=== PATIENT | female | born 1990 | race American Indian/Alaskan Native ===

== ENCOUNTER 2017-02-17 07:19 | Emergency (ER) | payer OTHER ==
[2017-02-17 07:34] VITALS: BP 121/78
[2017-02-17] MEDS ORDERED: MOTRIN PO ONE (07:56)
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
--- NOTE | 2017-02-17 09:37 | XRay Report ---
FINAL REPORT PROCEDURE: XR SHOULDER 2 RT TECHNIQUE: Three views right shoulder HISTORY: r shoulder pain COMPARISON: No prior studies are available for comparison. FINDINGS: No acute fracture seen at this time. No dislocation evident. IMPRESSION: No fracture or dislocation seen
--- NOTE | 2017-02-17 10:01 | XRay Report ---
FINAL REPORT EXAM: XR HUMERUS 2 RT HISTORY: r arm pain TECHNIQUE: 2 views of the right humerus. PRIORS: None FINDINGS: No acute fracture or dislocation. No significant soft tissue abnormality. IMPRESSION: 1. No acute finding.
== END 2017-02-17 09:45 | disposition home or self-care (01) ==
LOC: ED 07:19
DX: S43.401A Unspecified sprain of right shoulder joint, initial encounter (principal); V49.49XA Driver injured in collision with other motor vehicles in traffic accident, initial encounter; Y93.9 Activity, unspecified; Y92.9 Unspecified place or not applicable; Y99.9 Unspecified external cause status
CPT/HCPCS: 99284

== ENCOUNTER 2020-06-12 10:58 | Emergency (ER) | payer MEDICAID ==
[2020-06-12 11:39] VITALS: BP 132/87
[2020-06-12] MEDS ORDERED: TETRACAINE 0.5% OPHTH SOLN 4ML OU ONE (13:19)
[2020-06-12] MEDS ORDERED: FLUORESCEIN 1 MG STRIP OP ONE (13:19)
--- NOTE | 2020-06-12 13:40 | Emergency Department Report ---
ED Eye Problem HPI - General Chief complaint: Eye Problems Stated complaint: RT EYE SWELLING/DISCOMFORT Time Seen by Provider: 06/12/20 12:51 Source: patient Mode of arrival: Ambulatory Limitations: No Limitations - History of Present Illness Initial comments: Patient is a 29-year-old female presents emergency room with complaints of right eye pain and irritation that began last night. She states that she was accidentally poked in the eye with a finger. She states that she has a foreign body sensation but denies anything else getting into the eye. She states that the eye has been constantly watering and having mucus drainage. She states that she has right eye redness. She states that her vision feels blurry in that eye. She denies any contact lens use. She denies any past medical history. No allergies to medications. - Related Data Previous Rx's Medication Instructions Recorded Last Taken Type Gentamicin 0.3% Ophth Soln 1 drops OP Q4H #1 bottle 02/09/14 Unknown Rx HYDROcodone/APAP 5-325 [[place] 1 each PO Q6HR PRN #10 tablet 02/09/14 Unknown Rx 5-325 mg TAB] Cyclobenzaprine [Flexeril] 10 mg PO TID PRN #15 tablet 02/17/17 Unknown Rx Ibuprofen [Motrin] 800 mg PO Q8HR #30 tablet 02/17/17 Unknown Rx Erythromycin [Erythromycin Ophth 1 applic OD QID 10 Days #1 tube 06/12/20 Unknown Rx Oint] Allergies Allergy/AdvReac Type Severity Reaction Status Date / Time No Known Allergies Allergy Verified 02/17/17 07:28 ED Review of Systems ROS: Stated complaint: RT EYE SWELLING/DISCOMFORT Other details as noted in HPI Comment: All other systems reviewed and negative ED Past Medical Hx - Past Medical History Previous Medical History?: No Additional medical history: denies - Surgical History Past Surgical History?: No Additional Surgical History: denies - Social History Smoking Status: Never Smoker Substance Use Type: None - Medications Home Medications: Home Medications Medication Instructions Recorded Confirmed Last Taken Type Gentamicin 0.3% Ophth Soln 1 drops OP Q4H #1 bottle 02/09/14 Unknown Rx HYDROcodone/APAP 5-325 [[place] 1 each PO Q6HR PRN #10 tablet 02/09/14 Unknown Rx 5-325 mg TAB] Cyclobenzaprine [Flexeril] 10 mg PO TID PRN #15 tablet 02/17/17 Unknown Rx Ibuprofen [Motrin] 800 mg PO Q8HR #30 tablet 02/17/17 Unknown Rx Erythromycin [Erythromycin Ophth 1 applic OD QID 10 Days #1 tube 06/12/20 Unknown Rx Oint] ED Physical Exam - General Limitations: No Limitations General appearance: alert, in no apparent distress - Head Head exam: Present: atraumatic, normocephalic - Eye Eye exam: Present: PERRL, EOMI, conjunctival injection (right), other (fluoroscein stain with duvall lamp evaluation: there is a moderate size area of uptake present overlying the iris, no obvious foreign body, no obvious ulceration, there is mucus drainage) - ENT ENT exam: Present: mucous membranes moist - Respiratory Respiratory exam: Absent: respiratory distress, accessory muscle use - Neurological Exam Neurological exam: Present: alert, oriented X3 - Psychiatric Psychiatric exam: Present: normal affect, normal mood - Skin Skin exam: Present: warm, dry ED Course Vital Signs 06/12/20 11:30 Temperature 98.3 F Pulse Rate 72 Respiratory 14 Rate Blood Pressure 132/87 O2 Sat by Pulse 100 Oximetry ED Medical Decision Making - Medical Decision Making Patient is a 29-year-old female presents emergency room with complaints of right eye pain and irritation that began last night. She states that she was accidentally poked in the eye with a finger. She states that she has a foreign body sensation but denies anything else getting into the eye. She states that the eye has been constantly watering and having mucus drainage. She states that she has right eye redness. She states that her vision feels blurry in that eye. She denies any contact lens use. She denies any past medical history. No allergies to medications. Vitals are stable. On exam: Right conjunctival injection, PERRLA, EOMI, fluoroscein stain with duvall lamp evaluation: there is a moderate size area of uptake present overlying the iris, no obvious foreign body, no obvious ulceration, there is mucus drainage. Examination appears consistent with corneal abrasion. Patient given prescription for erythromycin ophthalmic ointment. Patient will be referred to ophthalmology for further evaluation. advised pt Please use medication as prescribed. Wash your hands frequently. Avoid rubbing the eye. Follow-up with utilization manager. Return to emergency room for any new or worsening symptoms. - Differential Diagnosis Corneal abrasion, foreign body, laceration, conjunctivitis, iritis Critical care attestation.: If time is entered above; I have spent that time in minutes in the direct care of this critically ill patient, excluding procedure time. ED Disposition Clinical Impression: Right corneal abrasion Qualifiers: Encounter type: initial encounter Qualified Code(s): S05.01XA - Injury of conjunctiva and corneal abrasion without foreign body, right eye, initial encounter Disposition: TO HOME OR SELFCARE Is pt being admited?: No Does the pt Need Aspirin: No Condition: Stable Instructions: Corneal Abrasion (ED) Additional Instructions: Please use medication as prescribed. Wash your hands frequently. Avoid rubbing the eye. Follow-up with utilization manager. Return to emergency room for any new or worsening symptoms. Prescriptions: Erythromycin [Erythromycin Ophth Oint] 1 applic OD QID 10 Days #1 tube Referrals: PRIMARY CAREMD [Primary Care Provider] - 2-3 Days [facility] [Provider Group] - 2-3 Days ADINA BARNEY MD [Staff Physician] - 2-3 Days Time of Disposition: 13:39 Print Language: TELUGU
== END 2020-06-12 13:55 | disposition home or self-care (01) ==
LOC: ED 10:58
DX: S05.01XA Injury of conjunctiva and corneal abrasion without foreign body, right eye, initial encounter (principal); Z79.1 Long term (current) use of non-steroidal anti-inflammatories (NSAID); Z79.2 Long term (current) use of antibiotics; Z79.899 Other long term (current) drug therapy; X58.XXXA Exposure to other specified factors, initial encounter; Y93.89 Activity, other specified; Y92.89 Other specified places as the place of occurrence of the external cause; Y99.8 Other external cause status

== ENCOUNTER 2020-07-18 07:12 | Emergency (ER) | payer MEDICAID ==
[2020-07-18 08:17] LABS: HCG Qualitative,Urine Positive (Negative)
[2020-07-18 08:19] LABS: Bacteria,Urine 1+ /HPF (Negative); Bilirubin,Urine NEG (Negative); Blood,Urine NEG (Negative); Color,Urine Yellow (Yellow); Mucus,Urine 3+ /HPF
[2020-07-18 09:53] LABS: Basophils % (Auto) 0.8 % (0.0-1.8); Eosinophils # (Auto) 0.1 K/mm3 (0.0-0.4); Eosinophils % (Auto) 1.5 % (0.0-4.3); Hematocrit 36.4 % (30.3-42.9); Hemoglobin 12.1 gm/dl (10.1-14.3); Lymphocytes # (Auto) 1.2 K/mm3 (1.2-5.4); Lymphocytes % (Auto) 24.2 % (13.4-35.0); Mean Corpuscular HGB Conc 33 % (30-34); Mean Corpuscular Volume 87 fl (79-97); Monocytes # (Auto) 0.5 K/mm3 (0.0-0.8); Monocytes % (Auto) 10.7 % (0.0-7.3); Platelet Count 277 K/mm3 (140-440); Red Blood Count 4.19 M/mm3 (3.65-5.03); Red Cell Distribution Width 17.3 % (13.2-15.2)
[2020-07-18 09:57] LABS: Blood Urea Nitrogen 5 mg/dL (7-17); Calcium 9.3 mg/dL (8.4-10.2); Hemolysis Index 4
[2020-07-18 09:59] LABS: BUN/Creatinine Ratio 8
--- NOTE | 2020-07-18 10:37 | Ultrasound Report ---
ULTRASOUND OBSTETRIC INDICATION / CLINICAL INFORMATION: pelvic pain. Clinical Gestational Age (GA): 7 weeks. 4 days TECHNIQUE: Transabdominal. COMPARISON: 08/16/2011 FINDINGS: GESTATIONAL SAC: Well-defined oval shape and intrauterine in location. YOLK SAC: No significant abnormality. EMBRYO/FETUS: No significant abnormality. - [place]-Rump Length = 11 mm = 7 weeks. 1 days - Heart Rate, beats per minute (if present) = 124 ADNEXA: Minimally complex left ovarian cyst measures 2.6 cm and likely represents corpus luteal cyst. FREE FLUID: None. ADDITIONAL FINDINGS: There is a moderate-sized subchorionic hemorrhage noted measuring 3.2 x 0.6 x 2. 8 cm IMPRESSION: 1. Single, living intrauterine with estimated sonographic age of 7 weeks 4.days. 2. Moderate subchorionic hemorrhage described above. Signer Name: Mitchel Jones MD Signed: 07/18/2020 10:33 AM Workstation Name: [id number]
[2020-07-18 11:10] VITALS: BP 147/79
--- NOTE | 2020-07-18 11:16 | Emergency Department Report ---
ED HPI - General Chief complaint: Abdominal Pain Stated complaint: LOWER ABD PAIN Time Seen by Provider: 07/18/20 08:53 Source: patient Mode of arrival: Ambulatory Limitations: No Limitations - History of Present Illness Initial comments: This is a 29-year-old female nontoxic, well nourished in appearance, no acute signs of distress presents to the ED with c/o of pelvic cramping x 1 week. Patient denies any n/v. Denies any vaginal bleeding. Denies any radiation of pain. Patient describes pelvic pain as cramping and aching with level of 3/10 diffuse. Patient denies chest pain, short of breath, fever, hemoptysis, blood in stool, chills, headache, stiff neck, numbness or tingling. Patient denies any diarrhea or constipation. Denies any blood in stool. Patient denies any recent travels. LMP 05/26/2020. Complaint: other (pelvic pain) -: week(s) Location: pelvis Radiation: none Severity: mild Severity scale (0 -10): 3 Quality: cramping, aching Consistency: intermittent Improves with: none Worsens with: none Associated symptoms: denies other symptoms. denies: nausea/vomiting, vaginal bleeding, vaginal discharge, abdominal pain, dysuria, headache, vision changes, malaise, dysparuenia, rash, seizure, shortness of breath, syncope, weakness Vaginal bleeding: none :: Yes Pre-simi care: none - Related Data Previous Rx's Medication Instructions Recorded Last Taken Type Gentamicin 0.3% Ophth Soln 1 drops OP Q4H #1 bottle 02/09/14 Unknown Rx HYDROcodone/APAP 5-325 [[place] 1 each PO Q6HR PRN #10 tablet 02/09/14 Unknown Rx 5-325 mg TAB] Cyclobenzaprine [Flexeril] 10 mg PO TID PRN #15 tablet 02/17/17 Unknown Rx Ibuprofen [Motrin] 800 mg PO Q8HR #30 tablet 02/17/17 Unknown Rx Erythromycin [Erythromycin Ophth 1 applic OD QID 10 Days #1 tube 06/12/20 Unknown Rx Oint] 21/Iron Fu/Folic Acid 1 each PO DAILY #30 tablet 07/18/20 Unknown Rx [ Complete Caplet] Allergies Allergy/AdvReac Type Severity Reaction Status Date / Time No Known Allergies Allergy Verified 07/18/20 07:30 ED Review of Systems ROS: Stated complaint: LOWER ABD PAIN Other details as noted in HPI Comment: All other systems reviewed and negative Constitutional: denies: chills, fever Eyes: denies: eye pain, eye discharge, vision change ENT: denies: ear pain, throat pain Respiratory: denies: cough, shortness of breath, wheezing Cardiovascular: denies: chest pain, palpitations Endocrine: no symptoms reported Gastrointestinal: denies: abdominal pain, nausea, diarrhea Genitourinary: denies: urgency, dysuria, discharge Musculoskeletal: denies: back pain, joint swelling, arthralgia Skin: denies: rash, lesions Neurological: denies: headache, weakness, paresthesias Psychiatric: denies: anxiety, depression Hematological/Lymphatic: denies: easy bleeding, easy bruising ED Past Medical Hx - Past Medical History Previous Medical History?: No Additional medical history: denies - Surgical History Past Surgical History?: No Additional Surgical History: denies - Social History Smoking Status: Never Smoker Substance Use Type: None - Medications Home Medications: Home Medications Medication Instructions Recorded Confirmed Last Taken Type Gentamicin 0.3% Ophth Soln 1 drops OP Q4H #1 bottle 02/09/14 Unknown Rx HYDROcodone/APAP 5-325 [[place] 1 each PO Q6HR PRN #10 tablet 02/09/14 Unknown Rx 5-325 mg TAB] Cyclobenzaprine [Flexeril] 10 mg PO TID PRN #15 tablet 02/17/17 Unknown Rx Ibuprofen [Motrin] 800 mg PO Q8HR #30 tablet 02/17/17 Unknown Rx Erythromycin [Erythromycin Ophth 1 applic OD QID 10 Days #1 tube 06/12/20 Unknown Rx Oint] 21/Iron Fu/Folic Acid 1 each PO DAILY #30 tablet 07/18/20 Unknown Rx [ Complete Caplet] ED Physical Exam - General Limitations: No Limitations General appearance: alert, in no apparent distress - Head Head exam: Present: atraumatic, normocephalic - Eye Eye exam: Present: normal appearance - Neck Neck exam: Present: normal inspection, full ROM. Absent: tenderness, meningismus, lymphadenopathy - Respiratory Respiratory exam: Present: normal lung sounds bilaterally. Absent: respiratory distress, wheezes, rales, rhonchi, chest wall tenderness, accessory muscle use, decreased breath sounds, prolonged expiratory - Cardiovascular Cardiovascular Exam: Present: regular rate, normal rhythm, normal heart sounds. Absent: bradycardia, tachycardia, irregular rhythm, systolic murmur, diastolic murmur, rubs, gallop - GI/Abdominal GI/Abdominal exam: Present: soft, normal bowel sounds. Absent: distended, tenderness, guarding, rebound, rigid, diminished bowel sounds - Extremities Exam Extremities exam: Present: full ROM - Back Exam Back exam: Present: full ROM - Neurological Exam Neurological exam: Present: alert, oriented X3, normal gait - Psychiatric Psychiatric exam: Present: normal affect, normal mood - Skin Skin exam: Present: warm, dry, intact, normal color. Absent: rash ED Course Vital Signs 07/18/20 07:32 Temperature 98.2 F Pulse Rate 89 Respiratory 20 Rate Blood Pressure 147/79 O2 Sat by Pulse 100 Oximetry - Reevaluation(s) Reevaluation #1: 07/18/20 11:22 Patient is speaking in full sentences with no signs of distress noted. ED Medical Decision Making - Lab Data Result diagrams: 07/18/20 09:13 07/18/20 09:13 Lab Results 07/18/20 07/18/20 07/18/20 Range/Units 09:13 09:13 09:13 WBC 4.9 (4.5-11.0) K/mm3 RBC 4.19 (3.65-5.03) M/mm3 Hgb 12.1 (10.1-14.3) gm/dl Hct 36.4 (30.3-42.9) % MCV 87 (79-97) fl MCH 29 (28-32) pg MCHC 33 (30-34) % RDW 17.3 H (13.2-15.2) % Plt Count 277 (140-440) K/mm3 Lymph % (Auto) 24.2 (13.4-35.0) % [place] % (Auto) 10.7 H (0.0-7.3) % Eos % (Auto) 1.5 (0.0-4.3) % Baso % (Auto) 0.8 (0.0-1.8) % Lymph # (Auto) 1.2 (1.2-5.4) K/mm3 [place] # (Auto) 0.5 (0.0-0.8) K/mm3 Eos # (Auto) 0.1 (0.0-0.4) K/mm3 Baso # (Auto) 0.0 (0.0-0.1) K/mm3 Seg Neutrophils % 62.8 (40.0-70.0) % Seg Neutrophils # 3.1 (1.8-7.7) K/mm3 Sodium 135 L (137-145) mmol/L Potassium 3.9 (3.6-5.0) mmol/L Chloride 101.8 (98-107) mmol/L Carbon Dioxide 26 (22-30) mmol/L Anion Gap 11 mmol/L BUN 5 L (7-17) mg/dL Creatinine 0.6 (0.6-1.2) mg/dL Estimated GFR > 60 ml/min BUN/Creatinine Ratio 8 % Glucose 97 (65-100) mg/dL Calcium 9.3 (8.4-10.2) mg/dL HCG, Quant [id number] H (0-4) mIU/mL Urine Color (Yellow) Urine Turbidity (Clear) Urine pH (5.0-7.0) Ur Specific [place] (1.003-1.030) Urine Protein (Negative) mg/dL Urine Glucose (UA) (Negative) mg/dL Urine Ketones (Negative) mg/dL Urine Blood (Negative) Urine Nitrite (Negative) Ur Reducing Substances Urine Bilirubin (Negative) Urine Ictotest Urine Urobilinogen (<2.0) mg/dL Ur Leukocyte Esterase (Negative) Urine WBC (Auto) (0.0-6.0) /HPF Urine RBC (Auto) (0.0-6.0) /HPF U Epithel Cells (Auto) (0-13.0) /HPF Urine Bacteria (Auto) (Negative) /HPF Urine Mucus /HPF Urine HCG, Qual (Negative) 07/18/20 Range/Units Unknown WBC (4.5-11.0) K/mm3 RBC (3.65-5.03) M/mm3 Hgb (10.1-14.3) gm/dl Hct (30.3-42.9) % MCV (79-97) fl MCH (28-32) pg MCHC (30-34) % RDW (13.2-15.2) % Plt Count (140-440) K/mm3 Lymph % (Auto) (13.4-35.0) % [place] % (Auto) (0.0-7.3) % Eos % (Auto) (0.0-4.3) % Baso % (Auto) (0.0-1.8) % Lymph # (Auto) (1.2-5.4) K/mm3 [place] # (Auto) (0.0-0.8) K/mm3 Eos # (Auto) (0.0-0.4) K/mm3 Baso # (Auto) (0.0-0.1) K/mm3 Seg Neutrophils % (40.0-70.0) % Seg Neutrophils # (1.8-7.7) K/mm3 Sodium (137-145) mmol/L Potassium (3.6-5.0) mmol/L Chloride (98-107) mmol/L Carbon Dioxide (22-30) mmol/L Anion Gap mmol/L BUN (7-17) mg/dL Creatinine (0.6-1.2) mg/dL Estimated GFR ml/min BUN/Creatinine Ratio % Glucose (65-100) mg/dL Calcium (8.4-10.2) mg/dL HCG, Quant (0-4) mIU/mL Urine Color Yellow (Yellow) Urine Turbidity Slightly-cloudy (Clear) Urine pH 6.0 (5.0-7.0) Ur Specific [place] 1.025 (1.003-1.030) Urine Protein 30 mg/dl (Negative) mg/dL Urine Glucose (UA) Neg (Negative) mg/dL Urine Ketones Neg (Negative) mg/dL Urine Blood Neg (Negative) Urine Nitrite Neg (Negative) Ur Reducing Substances Not Reportable Urine Bilirubin Neg (Negative) Urine Ictotest Not Reportable Urine Urobilinogen 4.0 (<2.0) mg/dL Ur Leukocyte Esterase Neg (Negative) Urine WBC (Auto) 3.0 (0.0-6.0) /HPF Urine RBC (Auto) 2.0 (0.0-6.0) /HPF U Epithel Cells (Auto) 18.0 H (0-13.0) /HPF Urine Bacteria (Auto) 1+ (Negative) /HPF Urine Mucus 3+ /HPF Urine HCG, Qual Positive A (Negative) - Radiology Data Referring Physician: PETRA DAHL Patient Name: HAJA OTERO Date of : 1990 Sex: Female Report Date: 2020-07-18 Report Status: Finalized [facility] [address] [id number] Ultrasound Report Signed Patient: HAJA OTERO MR#: [id number] : 1990 Acct:[id number] Age/Sex: 29 / F ADM Date: 07/18/20 Loc: ED Attending Dr: Ordering Physician: PETRA DAHL NP Date of Service: 07/18/20 Procedure(s): US OB <= 14 weeks fetus Accession Number(s): [id number] cc: PETRA DAHL NP ULTRASOUND OBSTETRIC INDICATION / CLINICAL INFORMATION: pelvic pain. Clinical Gestational Age (GA): 7 weeks. 4 days TECHNIQUE: Transabdominal. COMP ARISON: 08/16/2011 FINDINGS: GESTATIONAL SAC: Well-defined oval shape and intrauterine in location. YOLK SAC: No significant abnormality. EMBRYO/FETUS: No significant abnormality. - [place]-Rump Length = 11 mm = 7 weeks. 1 days - Heart Rate, beats per minute (if present) = 124 ADNEXA: Minimally complex left ovarian cyst measures 2.6 cm and likely represents corpus luteal cyst. FREE FLUID: None. ADDITIONAL FINDINGS: There is a moderate-sized subchorionic hemorrhage noted measuring 3.2 x 0.6 x 2.8 cm IMPRESSION: 1. Single, living intrauterine with estimated sonographic age of 7 weeks 4.days. 2. Moderate subchorionic hemorrhage described above. Signer Name: Mitchel Prince MD Signed: 07/18/2020 10:33 AM Workstation Name: [id number] Transcribed By: Dictated By: MITCHEL PRINCE Electronically Authenticated By: MITCHEL PRINCE Signed Date/Time: 07/18/20 1033 DD/ 1028 TD/TT: - Medical Decision Making This is a 29-year-old female that presents with pelvic pain during . Patient is stable and was examined by me. There is no abdominal tenderness. Negative signs of symptoms of appendicitis. Labs obtained. UA obtained. OB USobtained and dictated by the radiologist. Patient is notified of the report with no questions noted by the patient. Vital signs are stable prior to discharge. Patient was also instructed to Follow-up with a OBGYN doctor in 3-5 days or if symptoms worsen and continue return to emergency room as soon as possible. At time of discharge, the patient does not seem toxic or ill in ap pearance. No acute signs of distress noted. Patient agrees to discharge treatment plan of care. No further questions noted by the patient. Critical care attestation.: If time is entered above; I have spent that time in minutes in the direct care of this critically ill patient, excluding procedure time. ED Disposition Clinical Impression: Pelvic pain during Qualifiers: Weeks of gestation: less than 8 weeks Qualified Code(s): Z3A.01 - Less than 8 weeks gestation of Disposition: TO HOME OR SELFCARE Is pt being admited?: No Does the pt Need Aspirin: No Condition: Stable Instructions: Abdominal Pain (ED), Care, Abdominal Pain During , [id number] Additional Instructions: Follow-up with a OBGYN doctor in 3-5 days or if symptoms worsen and continue return to emergency room as soon as possible. Prescriptions: 21/Iron Fu/Folic Acid [ Complete Caplet] 1 each PO DAILY #30 tablet Referrals: PRIMARY CAREMD [Primary Care Provider] - 3-5 Days [facility] [Provider Group] - 3-5 Days [facility] [Provider Group] - 3-5 Days Forms: Work/School Release Form(ED)
[2020-07-19] MEDS ORDERED: INSULIN REGULAR, HUMAN 100 UNIT/ML 3ML VIAL ONE (07:45)
[2020-07-19] MEDS ORDERED: SODIUM POLYSTYRENE 15 GM/60 ML ORAL LIQD ONE (07:46)
== END 2020-07-18 11:33 | disposition home or self-care (01) ==
LOC: ED 07:12
DX: O26.891 Other specified pregnancy related conditions, first trimester (principal); R10.2 Pelvic and perineal pain; Z79.1 Long term (current) use of non-steroidal anti-inflammatories (NSAID); Z79.2 Long term (current) use of antibiotics; Z79.899 Other long term (current) drug therapy; Z3A.01 Less than 8 weeks gestation of pregnancy
CPT/HCPCS: 36415; 76801; 80048; 81001; 81025; 84702; 85025; J1815

== ENCOUNTER 2021-02-18 19:57 | Emergency (ER) | payer MEDICAID ==
[2021-02-19] MEDS ORDERED: LIDOCAINE (2%) 20 MG/1 ML VIAL 20 ML MDV INFILTRATI STA (00:12)
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
[2021-02-19 01:21] VITALS: BP 107/75
== END 2021-02-19 01:05 | disposition home or self-care (01) ==
LOC: ED 19:57
DX: O9A.213 Injury, poisoning and certain other consequences of external causes complicating pregnancy, third trimester (principal); S01.81XA Laceration without foreign body of other part of head, initial encounter; Z3A.38 38 weeks gestation of pregnancy; Z79.1 Long term (current) use of non-steroidal anti-inflammatories (NSAID); Z79.2 Long term (current) use of antibiotics; Z79.899 Other long term (current) drug therapy; W22.8XXA Striking against or struck by other objects, initial encounter; Y93.89 Activity, other specified; Y92.89 Other specified places as the place of occurrence of the external cause; Y99.8 Other external cause status
CPT/HCPCS: 99281